=== PATIENT | female | born 1970 | race Caucasian/White ===

== ENCOUNTER 2016-12-22 11:15 | Outpatient (CLI) | payer OTHER | END 2016-12-22 20:49 | disposition home or self-care (01) | LOC: SRD 11:15 | PROVIDERS: ATTEND General Practice | DX: S39.92XA Unspecified injury of lower back, initial encounter (principal); S29.9XXA Unspecified injury of thorax, initial encounter; M47.896 Other spondylosis, lumbar region; X58.XXXA Exposure to other specified factors, initial encounter; Y93.89 Activity, other specified; Y92.89 Other specified places as the place of occurrence of the external cause; Y99.8 Other external cause status | CPT/HCPCS: 71100; 72072-TC; 72110 ==

== ENCOUNTER 2020-02-22 15:44 | Outpatient (CLI) | payer BC | END 2020-02-22 21:09 | disposition home or self-care (01) | LOC: SMA 15:44 | PROVIDERS: ATTEND General Practice | DX: Z12.31 Encounter for screening mammogram for malignant neoplasm of breast (principal); M54.5 Low back pain; M46.06 Spinal enthesopathy, lumbar region; M47.816 Spondylosis without myelopathy or radiculopathy, lumbar region | CPT/HCPCS: 72110; 77067 ==